=== PATIENT | male | born 1945 | race Caucasian/White ===

== ENCOUNTER 2016-09-01 07:52 | Outpatient (CLI) | payer MEDICARE, OTHER ==
--- NOTE | 2016-09-01 15:39 | Ultrasound Report ---
EXAM: RIGHT LOWER EXTREMITY VENOUS ULTRASOUND EXAM DATE: 09/01/2016 08:38 a.m. CLINICAL HISTORY: Localized swelling, mass and lump, right lower limb. COMPARISON: None. TECHNIQUE: Real-time sonographic vascular imaging was performed by the rotary shear worker helper through the lower extremity utilizing both color-flow and Doppler spectral analysis. Multiple advertising representative static michelle ges were saved for review. FINDINGS: Common Femoral Vein (CFV): Normal. CFV-GSV Junction: Normal. Profunda Femoral Vein (PFV): Normal. Femoral Vein (FV) Prox: Normal. Femoral Vein (FV) Mid: Normal. Femoral Vein (FV) Dist: Normal. Popliteal Vein: Normal. Posterior Tibial Veins: Normal. Peroneal Veins: Normal. Contralateral Side CFV: Normal. Other: There is a superficial subcutaneous hypoechoic nonvascular collection with echoic component in the lateral right mid calf, 5.9 x 0.9 x 5 cm, without associated hyperemic changes. IMPRESSION: 1. No evidence for deep venous thrombosis. 2. A superficial subcutaneous hypoechoic nonvascular collection with echoic component in the lateral right mid calf, 5.9 x 0.9 x 5 cm, suspicious for a nonacute hematoma versus nonspecific fluid collect ion versus less likely abscess formation. Clinical follow-up is recommended. [facility] Referring Provider Line: [phone] SITE ID: [id number]
== END 2016-09-01 07:53 | disposition home or self-care (01) ==
LOC: DI 07:52
PROVIDERS: ATTEND Physician Assistant
DX: R93.8 Abnormal findings on diagnostic imaging of other specified body structures (principal)

== ENCOUNTER 2018-10-29 11:31 | Outpatient (CLI) | payer MEDICARE, OTHER ==
--- NOTE | 2018-10-30 16:19 | XRAY Report ---
Reason: LT HAND PAIN Procedure Date: 10/29/2018 Accession Number: [id number] / [id number] Procedure: XRN - Hand 3 View LT CPT Code: FULL RESULT: EXAM: LEFT HAND RADIOGRAPHY EXAM DATE: 10/29/2018 12:04 PM HISTORY: LT HAND PAIN COMPARISON: NONE TECHNIQUE : 3 views FINDINGS: Positive for fifth MCP dislocation with probable small fragment fracture off of the ventral aspect of the fifth proximal phalanx base. No fracture or other bone lesion. 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 IMPRESSION: Positive for fifth MCP dislocation with probable small fragment fracture off of the proximal phalanx with small defect noted but the fragment is not clearly visualized. [facility]
== END 2018-10-29 11:32 | disposition home or self-care (01) ==
LOC: DI.N 11:31
PROVIDERS: ATTEND Physician Assistant
DX: S63.267A Dislocation of metacarpophalangeal joint of left little finger, initial encounter (principal); M18.12 Unilateral primary osteoarthritis of first carpometacarpal joint, left hand; M19.042 Primary osteoarthritis, left hand

== ENCOUNTER 2018-11-30 15:55 | Emergency (ER) | payer MEDICARE, OTHER ==
--- NOTE | 2018-11-30 16:22 | ED Physician Documentation ---
PD HPI UPPER EXT INJURY - Stated complaint Stated Complaint: LT ARM PAIN - Chief complaint Chief Complaint: Ext Problem - History obtained from History obtained from: Patient - History of Present Illness Location: Left, Hand Type of injury: Other (10 days post operativeDr. Conelly for little finger dislocation. Has been in splint and doing okay. Follow up this coming week. Has noted 1-2 days of pain and swelling/tightness feeling in the area of the 5th MC. Some pain up the forearm to elbow area. No fever. Has not had the dressing/splint off, as per post op direction.) Timing - onset: How many days ago (2) Timing - duration: Days (1-2 days of symptoms related to the surgery 10 days ago.) Timing - details: Gradual onset, Still present Worsened by: Moving Associated symptoms: Swelling. No: Weakness, Numbness Similar symptoms before: Has not had sx before Recently seen: Surgery (ext fixature and ligament repair for finger dislocation little MCP.) Review of Systems Constitutional: denies: Fever, Chills Neurologic: denies: Focal weakness, Numbness PD PAST MEDICAL HISTORY - Past Medical History Cardiovascular: Hypertension Respiratory: None Endocrine/Autoimmune: None - Present Medications Home Medications: Ambulatory Orders Medication Instructions Recorded Confirmed Atorvastatin [Lipitor] 0 mg 11/30/18 Benazepril/Hydrochlorothiazide 1 each PO 11/30/18 [Benazepril-Hctz 20-25 mg Tab] Doxycycline Monohydrate 100 mg PO BID #14 tablet 11/30/18 Hydrocodone/Acetaminophen 1 - 2 each PO Q6H PRN #14 tablet 11/30/18 [Hydrocodon-Acetaminophen 5-325] Lansoprazole [Prevacid] 15 mg PO 11/30/18 11/30/18 Mupirocin 1 applic TP TID #15 g 11/30/18 - Allergies Allergies/Adverse Reactions: Allergies Allergy/AdvReac Type Severity Reaction Status Date / Time ampicillin Allergy Respiratory Verified 11/30/18 16:16 ceftriaxone [From Rocephin] Allergy Hives Verified 11/30/18 16:16 Penicillins Allergy Unknown Verified 11/30/18 16:16 levofloxacin [From Levaquin] AdvReac Hallucinati Verified 11/30/18 16:16 ons PD ED PE NORMAL - Vitals Vital signs reviewed: Yes - General General: Alert and oriented X 3, No acute distress, Well developed/nourished - Derm Derm: Normal color, Warm and dry - Extremities Extremities: Other (Dressing and splint are removed from the left hand and ulnar gutter showing some redness with mild purulence along the dorsal aspect of the fifth metacarpal at a surgical site. The pins on the finger are without any obvious redness. There is no proximal red streaking. There is no fluctuance. The forearm is nontender and does not have any swelling. There are no axillary lymph nodes.) - Neuro Neuro: Alert and oriented X 3, No motor deficit, No sensory deficit, Other (Good color and capillary refill as well as sensation at the fingertips) Results - Vitals Vitals: Vital Signs - 24 hr 11/30/18 16:13 Temperature 36.8 C Heart Rate 80 Respiratory 20 Rate Blood Pressure 154/93 H O2 Saturation 98 Oxygen O2 Source Room air - Labs Labs: Laboratory Tests 11/30/18 11/30/18 11/30/18 16:54 16:54 16:54 WBC 10.0 RBC 3.63 L Hgb 12.7 L Hct 37.0 L MCV 101.9 H MCH 35.0 H MCHC 34.3 RDW 12.7 Plt Count 214 MPV 10.8 Neut # (Auto) 8.0 H Lymph # (Auto) 0.7 L Glades # (Auto) 1.1 H Eos # (Auto) 0.0 Baso # (Auto) 0.0 Absolute Nucleated RBC 0.00 Nucleated RBC % 0.0 ESR 66 H Sodium 139 Potassium 3.5 Chloride 98 L Carbon Dioxide 29 Anion Gap 12.0 BUN 10 Creatinine 1.1 Estimated GFR (MDRD) 65 L Glucose 97 Calcium 9.1 Total Bilirubin 0.7 AST 30 ALT 23 Alkaline Phosphatase 55 Total Protein 6.9 Albumin 3.6 Globulin 3.3 Albumin/Globulin Ratio 1.1 Lipase 40 - Rads (name of study) hand xray Radiology: Prelim report reviewed (No obvious air or fluid pockets in the soft tissue. The surgical pins appear in place.), See rad report duplex arm Radiology: Prelim report reviewed (No blood clots seen), See rad report PD MEDICAL DECISION MAKING - ED course Complexity details: reviewed results, considered differential (There does appear to be a postoperative wound infection on the dorsum of the hand with localized redness and swelling. He has good sensation at the fingertip and good color and capillary refill. There is no proximal red streaking. No fever and a normal white count. I will treat him with antibiotics and can add in some pain medicine if needed.), d/w patient, d/w fashion consultant sales (Attempted to contact the on- call provider for Dr. William. Our POINTER HELPER states the answering service did not respond through the office number and she tried tracking down an on-call provider and subsequently did fine who should be on-call. I talked with I believe it was Dr. Rondon(?) who said he actually did not cover that service. I will have the patient call Dr. William's office tomorrow morning to update on the results. I think the current status of the infection can be followed into office tomorrow.) Departure - Departure Disposition: 01 Home, Self Care Clinical Impression: Postoperative wound infection Condition: Stable Record reviewed to determine appropriate education?: Yes Follow-Up: GURU KING MD [Physician No Access] - Prescriptions: Doxycycline Monohydrate 100 mg PO BID #14 tablet Hydrocodone/Acetaminophen [Hydrocodon-Acetaminophen 5-325] 1 - 2 each PO Q6H PRN #14 tablet PRN Reason: pain Mupirocin 1 applic TP TID #15 g Comments: Call Dr. Cordova's office in the morning to update them on our findings of a wound infection and being started on antibiotics. I tried contacting the on- call orthopedist this evening but was unable to get a response at this time. I think this care will be appropriate but your orthopedist should be notified in the morning and will likely want to see you in the next couple of days. Keep the splint and bandaging on. Doxycycline antibiotic orally twice daily for the next week. Recheck with your orthopedist in the next couple of days. Hydrocodone as needed for pains.
[2018-11-30] MEDS ORDERED: DOXYCYCLINE 100 MG TABLET PO STA (16:41)
[2018-11-30] MEDS ORDERED: MUPIROCIN 2% OINT 1 GM TOP STA (16:42)
[2018-11-30 17:02] LABS: BASOPHILS % (AUTO) 0.4 %; EOSINOPHILS % (AUTO) 0.4 %; HGB - HEMOGLOBIN 12.7 g/dL (14.0-18.0); LYMPHOCYTES # (AUTO) 0.7 10^3/uL (1.5-3.5); LYMPHOCYTES % (AUTO) 7.1 %; MEAN CORPUSCULAR HGB CONC 34.3 g/dL (32.0-36.0); MEAN CORPUSCULAR VOLUME 101.9 fL (80.0-94.0); MEAN PLATELET VOLUME 10.8 fL (7.4-11.4); MONOCYTES # (AUTO) 1.1 10^3/uL (0.0-1.0); MONOCYTES % (AUTO) 11.2 %; PLT - PLATELET COUNT 214 10^3/uL (130-450); RED BLOOD COUNT 3.63 10^6/uL (4.70-6.10); RED CELL DISTRIBUTION WIDTH 12.7 % (12.0-15.0)
[2018-11-30 17:10] LABS: ALBUMIN 3.6 g/dL (3.2-5.5); ALBUMIN/GLOBULIN RATIO 1.1 (1.0-2.2); BILIRUBIN,TOTAL 0.7 mg/dL (0.2-1.0); CALCIUM 9.1 mg/dL (8.5-10.3); CREATININE 1.1 mg/dL (0.6-1.2); TOTAL PROTEIN 6.9 g/dL (6.7-8.2)
--- NOTE | 2018-11-30 17:15 | XRAY Report ---
Reason: left hand surgery with swelling now Procedure Date: 11/30/2018 Accession Number: [id number] / [id number] Procedure: XR - Hand 3 View LT CPT Code: FULL RESULT: EXAM: LEFT HAND RADIOGRAPHY EXAM DATE: 11/30/2018 05:00 PM. CLINICAL HISTORY: Left hand surgery with swelling now. COMPARISON: HAND 3 VIEW LT 10/29/2018 12:07 PM. TECHNIQUE: 3 views. FINDINGS: Bones: There are 2 metallic wires traversing across the fifth MCP joint. No acute fracture. Joints: Alignment appears satisfactory. Soft Tissues: There is soft tissue swelling around the dorsum of the hand and fifth digit. IMPRESSION: Soft tissue swelling. External fixation across fifth MCP joint. [facility]
--- NOTE | 2018-11-30 18:10 | Ultrasound Report ---
Reason: left hand surgery with now hand/arm swelling Procedure Date: 11/30/2018 Accession Number: [id number] / [id number] Procedure: US - Duplex Ext Veins Left CPT Code: FULL RESULT: EXAM: LEFT UPPER EXTREMITY VENOUS ULTRASOUND EXAM DATE: 11/30/2018 05:59 PM. CLINICAL HISTORY: Left hand surgery with now hand/arm swelling. COMPARISON: None. TECHNIQUE: Real-time sonographic vascular imaging was performed by the ingredient specialist through the upper extremity utilizing both color-flow and Doppler spectral analysis. Multiple sales representative consultant static images were saved for review. FINDINGS: Internal Jugular Vein (IJV): Normal. Subclavian Vein (SCV): Normal. Axillary Vein : Normal. Cephalic Vein (superficial vein): Normal. Basilic Vein (superficial vein): Normal. Brachial Vein: Normal. IMPRESSION: No evidence for deep vein thrombosis. [facility]
[2018-11-30] MEDS ORDERED: HYDROcod/ACETAM 5/325 MG TABLET PO STA (18:13)
[2018-11-30] MEDS ORDERED: IBUPROFEN 600 MG TABLET PO STA (18:13)
[2018-11-30 18:58] VITALS: BP 153/91
== END 2018-11-30 19:00 | disposition home or self-care (01) ==
LOC: ED 15:55
DX: T81.49XA Infection following a procedure, other surgical site, initial encounter (principal); L08.9 Local infection of the skin and subcutaneous tissue, unspecified; I10 Essential (primary) hypertension
CPT/HCPCS: 36415; 73130; 80053; 83690; 85025; 85651; 87070; 87077; 87181; 87205; 93971; 99283; 99284; A9270

== ENCOUNTER 2021-12-11 08:00 | Outpatient (CLI) | payer MEDICARE, OTHER | END 2021-12-11 23:59 | disposition home or self-care (01) | LOC: LAB.N 08:00 | PROVIDERS: ATTEND Physician Assistant | DX: R60.0 Localized edema (principal) | CPT/HCPCS: 36415; 85379 ==

== ENCOUNTER 2021-12-12 22:03 | Outpatient (CLI) | payer MEDICARE, OTHER ==
--- NOTE | 2021-12-13 12:32 | Ultrasound Report ---
PROCEDURE: Duplex Ext Veins Right INDICATIONS: RIGHT LEG EDEMA TECHNIQUE: Real-time imaging, as well as color and pulse Doppler interrogation, were performed of the lower extr emity deep veins from the inguinal ligament to the popliteal fossa. COMPARISON: None. FINDINGS: The deep veins are normally compressible, and free of intraluminal thrombus. Color and pu lse Doppler demonstrate normal phasic intraluminal flow. There is normal augmentation response to di stal compression maneuver. Justice's cyst is noted measuring 4.1 x 0.8 x 1.0 cm. There is mild appeara nce of fluid tracking along the anterior knee measuring 6.7 x 0.8 x 4.9 cm. Subcutaneous edema is pre sent. IMPRESSION: No deep venous thrombosis. Subcutaneous edema. Anterior fluid within the lower extremity possibly related to hematoma or partial rupture of a Justice' s cyst. Reviewed by: Ellen Caldwell MD on 12/13/2021 12:30 PM PDT Approved by: Ellen Caldwell MD on 12/13/2021 12:30 PM PDT Station ID: [id number]
== END 2021-12-12 22:04 | disposition home or self-care (01) ==
LOC: DI 22:03
PROVIDERS: ATTEND Physician Assistant
DX: R60.0 Localized edema (principal)